=== PATIENT | male | born 1935 | race Caucasian/White ===

== ENCOUNTER → 2018-09-11 | Outpatient (CLI) | payer OTHER, MEDICARE | LOC: MRI 09:29 | DX: M16.11 Unilateral primary osteoarthritis, right hip (principal); M25.552 Pain in left hip ==

== ENCOUNTER → 2018-12-20 | Outpatient (CLI) | payer OTHER ==
--- NOTE | 2018-12-22 20:56 | SLE ---
[facility] [place] [address] POLYSOMNOGRAPHY STUDY Name: Corky SAULRICK Room #: REG [facility]#: [id number] Admission: 12/20/18 Attend Phys: Juan Gomez MD Discharge: Date of : 39 Report #: [id number] THIS REPORT FOR: //name// CC: Juan Gonzales MD [facility] DATE OF SERVICE: 12/21/2018 ATTENDING PHYSICIAN: Dr. Koko Gonzales. The patient is an 83-year-old who weighs 178 pounds with a BMI of 24.8. The patient underwent a polysomnogram at [facility]. This was a diagnostic study. During the night of study the patient spent 416 minutes in bed and slept for 277 minutes with a low sleep efficiency of 66%. Sleep latency was prolonged at 100 minutes with a REM latency of 185 minutes. Overall sleep architecture showed increased stage 1 and stage 2 sleep, absent N3 sleep and normal REM sleep. During the night study, the patient had 39 apneas, 35 obstructive, 2 central and 2 mixed apneas and 10 hypopneas. The patient's apnea-hypopnea index was 10.6 per hour with a REM index of 28 per hour and a supine index of 21 per hour. EKG monitoring revealed an average heart rate of 49 beats per minute with a maximum of 74 beats per minute. No sustained arrhythmias observed. However, PVCs and PAC's were seen throughout. PLMS were not seen. Nocturnal oximetry study revealed an average oxygen saturation of 94% and the lowest of 63%. 70 minutes were spent at an oxygen saturation of less than 89%. Due to reduced sleep efficiency, the patient did not meet the split night criteria for CPAP initiation. IMPRESSION: 1. Mild sleep apnea-hypopnea syndrome with moderate increase during supine sleep and further increase during REM sleep. Total apnea-hypopnea index 10.6 per hour with a supine apnea-hypopnea index of 21 per hour and a REM apnea-hypopnea index of 28 per hour. 2. Nocturnal hypoxia secondary to obstructive sleep apnea. 3. No clinically significant periodic limb movements of sleep. 4. 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 5. Abnormal EKG consistent with premature ventricular contractions throughout [facility] [address] [place] [address] POLYSOMNOGRAPHY STUDY Name: Corky SAUL Room #: [facility]#: [id number] Admission: 12/20/18 Attend Phys: Juan Gomez MD Discharge: Date of : 39 Report #: [id number] the night. RECOMMENDATIONS: 1. The patient would benefit from treatment of sleep apnea with either oral appliance or a trial of CPAP titration. 2. If the patient is treated with CPAP then follow up in 4-6 weeks to assess compliance and to document clinical improvement. 3. Avoid [employer] depressants. 4. Cautioned regarding driving until symptoms of sleep apnea have resolved with the above recommendation. 5. The patient's insomnia should also be further evaluated and treated according to the etiology, if it is a known chronic condition. 6. Follow up with Cardiology if clinically indicated regarding abnormal EKG. <ELECTRONICALLY SIGNED> By: Juan Gomez MD 12/22/18 2056 1729 1744 Juan Gomez MD /nt
== END ==
LOC: SLEEPLAB 11:49
DX: G47.33 Obstructive sleep apnea (adult) (pediatric) (principal); R09.02 Hypoxemia; R94.31 Abnormal electrocardiogram [ECG] [EKG]

== ENCOUNTER → 2019-01-10 | Outpatient (CLI) | payer OTHER ==
--- NOTE | 2019-01-12 21:19 | SLE ---
[facility] [place] [address] POLYSOMNOGRAPHY STUDY Name: Corky SAUL Room #: REG [facility]#: [id number] Admission: 01/10/19 ������������������ Attend Phys: Juan Gomez MD Discharge: ������������������ Date of : 39 Report #: [id number] THIS REPORT FOR: //name// CC: Juan Burnett DATE OF SERVICE: 01/10/2019 ATTENDING PHYSICIAN: Dr. Bishnu Burnett. The patient is 83 years old who weighs 178 pounds with a BMI of 26.3. The patient had a previous sleep study which showed mild RADHA at an AHI of 10.6 per hour with a supine AHI of 21 per hour and REM AHI of 28 per hour. The patient also had abnormal EKG with PVCs throughout. The patient was referred back for CPAP titration study. During the night study, the patient spent 446 minutes in bed and slept for 297 minutes with a sleep efficiency of 66.6%. Sleep latency was 24.2 minutes with a REM latency of 83.7 minutes. Overall, sleep architecture showed increased stage 1 sleep, normal stage 2 sleep, absent slow wave and increased REM sleep, which was 36% of the total sleep time. EKG monitoring revealed an average heart rate of 49 beats per minute with a maximum of 72 beats per minute. PVCs and PAC's were seen frequently during the study. No clinically significant PLMS observed. The patient was started on CPAP at a pressure of 5 cm water and titrated up to 18 cm water. At the final pressure, the patient slept for 36 minutes. The patient had 19 minutes of REM sleep. The patient had supine sleep as well. The patient's AHI was reduced to 0 per hour and oxygen saturations remained above 95%. IMPRESSION: 1. Sleep apnea diagnosed by previous sleep study. 2. No clinically significant periodic limb movements of sleep. 3. Abnormal EKG with premature ventricular contractions. RECOMMENDATIONS: 1. CPAP at 18 cm water completely eliminated the patient's sleep apnea and should be used on a nightly basis. 2. Follow up in 4-6 weeks to assess compliance with CPAP and to document [facility] [address] [place] [address] POLYSOMNOGRAPHY STUDY Name: Corky SAUL Room #: REG [facility] Gianfranco#: [id number] Admission: 01/10/19 ������������������ Attend Phys: Juan Gomez MD Discharge: ������������������ Date of : 39 Report #: [id number] clinical improvement. 3. Avoid EXTENDER depressants. 4. Cautioned regarding driving until symptoms of sleep apnea resolve with the use of CPAP. 5. Follow up with Cardiology regarding abnormal EKG if clinically indicated. ��������������������������������������������� <ELECTRONICALLY SIGNED> ���������������������������������������� By: Juan Gomez MD ��������������������������������������������� 01/12/19 2119 1754 1814 Juan Gomez MD /nt
== END ==
LOC: SLEEPLAB 14:38
DX: G47.33 Obstructive sleep apnea (adult) (pediatric) (principal); R94.31 Abnormal electrocardiogram [ECG] [EKG]

== ENCOUNTER → 2020-06-14 | Outpatient (CLI) | payer OTHER, MEDICARE | LOC: SJCVC 10:07 | PROVIDERS: ATTEND Internal Medicine Cardiovascular Disease | DX: I44.0 Atrioventricular block, first degree (principal); I35.0 Nonrheumatic aortic (valve) stenosis; I10 Essential (primary) hypertension; E78.00 Pure hypercholesterolemia, unspecified; I65.23 Occlusion and stenosis of bilateral carotid arteries; K21.9 Gastro-esophageal reflux disease without esophagitis; Z79.899 Other long term (current) drug therapy; Z82.49 Family history of ischemic heart disease and other diseases of the circulatory system ==

== ENCOUNTER → 2020-12-21 | Outpatient (CLI) | payer OTHER, MEDICARE | LOC: SJCVCIMAG 12-20 08:21 | PROVIDERS: ATTEND Internal Medicine Cardiovascular Disease | DX: I08.3 Combined rheumatic disorders of mitral, aortic and tricuspid valves (principal); I10 Essential (primary) hypertension; E78.5 Hyperlipidemia, unspecified; Z79.899 Other long term (current) drug therapy ==

== ENCOUNTER → 2021-07-18 | Outpatient (CLI) | payer OTHER, MEDICARE | LOC: SJCVC 10:30 | PROVIDERS: ATTEND Internal Medicine Cardiovascular Disease | DX: I35.0 Nonrheumatic aortic (valve) stenosis (principal); I10 Essential (primary) hypertension; E78.00 Pure hypercholesterolemia, unspecified; I65.23 Occlusion and stenosis of bilateral carotid arteries; G47.33 Obstructive sleep apnea (adult) (pediatric); Z72.89 Other problems related to lifestyle; Z79.899 Other long term (current) drug therapy ==